=== PATIENT | male | born 1960 | race Caucasian/White ===

== ENCOUNTER → 2022-10-12 12:33 | Outpatient (CLI) | payer OTHER, SELFPAY ==
--- NOTE | ~2022-10-12 | CT_ITS ---
EXAMINATION: CT lung screening DATE: 10/12/2022 13:03 INDICATION: History of tobacco dependence. TECHNIQUE: Computed tomography (CT) of the chest was performed without intravenous contrast. The dose -length product was 166.96 mGy-cm. Automated exposure control and iterative reconstruction technique were employed. COMPARISON: None FINDINGS: Nonenlarged mediastinal lymph nodes, likely reactive. Heart size normal. No significant ple ural or pericardial effusion. The liver, spleen, pancreas, adrenal glands are unremarkable. Gallbladd er is present. There are small 2 mm upper lobe nodules bilaterally. There is emphysema. No endobronch ial lesions. No pneumothorax. IMPRESSION: 1. Lung-RADS category 2: Benign appearance or behavior. Continue annual screening with noncontrast lo w-dose chest CT in 12 months. Reviewed, dictated and finalized at location [] IMPRESSION: 1. Lung-RADS category 2: Benign appearance or behavior. Continue annual screeni ng with noncontrast low-dose chest CT in 12 months.
== END ==
PROVIDERS: PCP Family Medicine; Visit Provider Family Medicine
DX: Z12.2 Encounter for screening for malignant neoplasm of respiratory organs (principal); F17.210 Nicotine dependence, cigarettes, uncomplicated
CPT/HCPCS: 71271

== ENCOUNTER 2024-06-29 00:38 | Day surgery (SDC) | payer OTHER, SELFPAY ==
[2024-06-18 12:54] VITALS: BMI 28.1
[2024-06-29 09:50] VITALS: BP 144/86; PULSE 71; RESP 16; TEMP 36.1; O2SAT 100; BMI 28.3
[2024-06-29] MEDS: LACTATED RINGERS 1,000 ML 150 ML IV CONT (10:11)
--- NOTE | 2024-06-29 10:32 | WPDANESEPPF ---
Anes - Initial Pre Proc Eval Procedure: Operation Date: 06/29/24 11:00 Proposed Procedures p Screening Colonoscopy - Luis Fernando Goldberg MD Date/Time: 06/29/24 10:32 Surgeon: Luis Fernando Goldberg MD Pre Op Diagnosis: Screening for malignant neoplasm of colon Patient Data Age: 63 Gender: M Height: 1.73 m Weight: 84.5 kg Last Vital Signs Temp 36.1 C L 06/29/24 09:50 Pulse 71 06/29/24 09:50 Resp 16 06/29/24 09:50 BP 144/86 H 06/29/24 09:50 Pulse Ox 100 06/29/24 09:50 O2 Del Method Room Air 06/29/24 09:50 Allergies Allergy/AdvReac Type Severity Reaction Status Date / Time No Known Allergies Allergy Verified 06/29/24 10:02 Home Medications ?Medication ?Instructions ?Recorded ?Confirmed ?Type cholecalciferol (vitamin D3) 25 25 mcg PO DAILY 05/10/22 06/29/24 History mcg (1,000 unit) capsule omega 2-oaj-kxf-fish oil 60 mg-90 1 cap PO DAILY 07/03/22 06/29/24 History mg-500 mg capsule (Fish Oil) mecobalamin (vitamin B12) 1,000 1,000 mcg PO DAILY 09/04/23 06/29/24 History mcg chewable tablet amlodipine 5 mg tablet 5 mg PO DAILY #90 tabs 01/03/24 06/29/24 Rx sertraline 25 mg tablet 25 mg PO DAILY #90 tabs 02/05/24 06/18/24 Rx atorvastatin 10 mg tablet See Rx Instructions .Route 05/12/24 06/29/24 Rx .COMPLEX #90 tabs azithromycin 250 mg tablet See Rx Instructions PO .COMPLEX #6 05/22/24 06/18/24 Rx tabs meloxicam 15 mg tablet See Rx Instructions .Route 06/10/24 06/29/24 Rx .COMPLEX #30 tabs celecoxib 200 mg capsule mg 06/18/24 History Patient hx anesthesia problems: none Family hx anesthesia problems: none Results Review: All pre-operative results and documents have been reviewed as part of the pre-operative evaluation. [facility] Past Medical History Medical History Smoker LANDON (obstructive sleep apnea) Hyperlipidemia Hypertension Surgical History Surgical History History of colonoscopy 04/20/15 Dr. Villarreal Family History Family History Father Acute myocardial infarction Emphysema lung Mother Hypertension Thyroid disorder Social History Social History Social History: Patient declined SDOH 02/05/24 Smoking packs per day: 1 Smoking cigarettes per day: 20.0 Years smoked: 40 Smoking pack-years: 40.00 Smoking status: Current every day smoker Tobacco type: cigarettes Alcohol intake: current Drinks per week: 20 Alcohol use details: 3-4 beers / night Substance use: current Do You Feel Safe in your Home?: Yes Lack of Transportation: No Lack of Food: Never True Current Housing: I Have Housing Concerned About Future Housing: No Difficulty Paying Gas/Electric Bills: No Difficulty Paying for Meds: No Currently Unemployed: No Difficulty w/ Childcare or Family Care: No Living arrangements: alone Occupation/Education: occupation 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 Informed Consent: The patient's anesthetic plan and its attendant risks and benefits were discussed with the patient/family/POA. Questions were solicited and answers provided to the satisfaction of the patient/family/POA.
--- NOTE | 2024-06-29 11:16 | PM.IMHP ---
H&P: HPI History of Present Illness Date/Time: 06/29/24 11:16 Chief Complaint: History of colon polyps Narrative: The patient has a history of colonic polyps, the last colonoscopy was 5 years ago Review of Systems Review of Systems: All systems reviewed & are unremarkable except as noted in HPI and below PMFSH Past Medical History Medical History Smoker LANDON (obstructive sleep apnea) Hyperlipidemia Hypertension Surgical History Surgical History History of colonoscopy 04/20/15 Dr. Villarreal Family History Family History Father Acute myocardial infarction Emphysema lung Mother Hypertension Thyroid disorder Social History Social History Social History: Patient declined SDOH 02/05/24 Smoking packs per day: 1 Smoking cigarettes per day: 20.0 Years smoked: 40 Smoking pack-years: 40.00 Smoking status: Current every day smoker Tobacco type: cigarettes Alcohol intake: current Drinks per week: 20 Alcohol use details: 3-4 beers / night Substance use: current Do You Feel Safe in your Home?: Yes Lack of Transportation: No Lack of Food: Never True Current Housing: I Have Housing Concerned About Future Housing: No Difficulty Paying Gas/Electric Bills: No Difficulty Paying for Meds: No Currently Unemployed: No Difficulty w/ Childcare or Family Care: No Living arrangements: alone Occupation/Education: occupation 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 Spiritual care concerns: No Agree to blood products: Yes Meds Home Medications and Allergies Home Medications ?Medication ?Instructions ?Recorded ?Confirmed ?Type cholecalciferol (vitamin D3) 25 25 mcg PO DAILY 05/10/22 06/29/24 History mcg (1,000 unit) capsule omega 9-dfl-ekm-fish oil 60 mg-90 1 cap PO DAILY 07/03/22 06/29/24 History mg-500 mg capsule (Fish Oil) mecobalamin (vitamin B12) 1,000 1,000 mcg PO DAILY 09/04/23 06/29/24 History mcg chewable tablet amlodipine 5 mg tablet 5 mg PO DAILY #90 tabs 01/03/24 06/29/24 Rx sertraline 25 mg tablet 25 mg PO DAILY #90 tabs 02/05/24 06/18/24 Rx atorvastatin 10 mg tablet See Rx Instructions .Route 05/12/24 06/29/24 Rx .COMPLEX #90 tabs azithromycin 250 mg tablet See Rx Instructions PO .COMPLEX #6 05/22/24 06/18/24 Rx tabs meloxicam 15 mg tablet See Rx Instructions .Route 06/10/24 06/29/24 Rx .COMPLEX #30 tabs celecoxib 200 mg capsule mg 06/18/24 History Allergies Allergy/AdvReac Type Severity Reaction Status Date / Time No Known Allergies Allergy Verified 06/29/24 10:02 Vital Signs Vital Signs - 24 hr 06/29/24 09:50 Temperature 96.9 F L Pulse Rate 71 Respiratory Rate 16 Blood Pressure 144/86 H Pulse Oximetry 100 Oxygen Delivery Room Air Exam Const: General: cooperative and healthy appearing Resp: Effort & Inspection: normal respiratory effort and able to speak in complete sentences Auscultation: clear to auscultation bilaterally Cardio: Rate: regular rate Rhythm: regular rhythm GI: Inspection: normal to inspection GI Palp: No No hepatosplenomegaly present Auscultation: normal bowel sounds Rectal Exam: deferred Skin: General skin exam: normal color Psych: Appearance: grossly normal Mental Status: mental status grossly normal Assessment and Plan Assessment and plan (1) History of colonic polyps: Code(s): Z86.0100 - Personal history of colon polyps, unspecified Status: Acute Assessment and Plan: The patient is deemed a good candidate for the procedure. Consent signed. Will proceed.
[2024-06-29] MEDS: SIMETHICONE ORAL SUSPENSION 20 MG/0.3 ML 30 ML BOTTLE 0.6 ML IRRIGATION (11:35)
[2024-06-29 11:43] VITALS: BP 128/81; PULSE 74; RESP 21; O2SAT 100
[2024-06-29 11:53] VITALS: BP 138/91; PULSE 65; RESP 23; O2SAT 100
[2024-06-29 12:03] VITALS: BP 136/88; PULSE 61; RESP 20; O2SAT 100
== END 2024-06-29 12:13 | disposition home or self-care (01) ==
PROVIDERS: PCP Nurse Practitioner Family; Referring Provider Nurse Practitioner Family; Visit Provider Internal Medicine Gastroenterology
PROC: 0DJD8ZZ Inspection of Lower Intestinal Tract, Via Natural or Artificial Opening Endoscopic (ICD-10-PCS; CPT 45378; principal; 2024-06-29 11:00)
DX: Z12.11 Encounter for screening for malignant neoplasm of colon (principal); K63.5 Polyp of colon; F17.210 Nicotine dependence, cigarettes, uncomplicated
CPT/HCPCS: 45385; 88305; J2003; J2704; J7120

== ENCOUNTER 2025-04-05 14:24 | Outpatient (CLI) | payer MEDICARE, SELFPAY ==
--- NOTE | ~2025-04-05 | CT_ITS ---
EXAMINATION: CT lung screening DATE: 04/05/2025 14:37 INDICATION: Personal history of nicotine dependence TECHNIQUE: Computed tomography (CT) of the chest was performed without intravenous contrast. Additional 3D reconstructions utilizing coronal maximum intensity projection (MIP) were performed. Automated exposure control and iterative reconstruction technique were employed. The dose-length product was 13 7.42 mGy-cm. COMPARISON: None FINDINGS: Moderate emphysema. Couple unchanged 2 mm nodules in the bilateral upper lobes and new 2 mm nodule in the right lower lobe. No pneumonia, pulmonary edema or other pulmonary infiltrates. No pleural effusion. Heart size normal. Atherosclerotic coronary artery calcification. No pericardial effusion. Thoracic aorta is normal in caliber. No pathologically enlarged thoracic lymphadenopathy./Upper abdomen is unremarkable. Moderate thoracic spondylosis. IMPRESSION: 1. Lung-RADS category 2: Benign appearance or behavior. Continue annual screening with noncontrast low-dose chest CT in 12 months. Reviewed, dictated and finalized at location A. [facility] [employer] IMPRESSION: 1. Lung-RADS category 2: Benign appearance or behavior. Continue annual screeni ng with noncontrast low-dose chest CT in 12 months.
== END 2025-04-05 14:25 | disposition home or self-care (01) ==
LOC: MICIMG 14:25
PROVIDERS: PCP Nurse Practitioner Family; Visit Provider Nurse Practitioner Family
DX: Z12.2 Encounter for screening for malignant neoplasm of respiratory organs (principal); Z87.891 Personal history of nicotine dependence
CPT/HCPCS: 71271